=== PATIENT | female | born 1980 | race Caucasian/White ===

== ENCOUNTER 2018-12-05 21:34 | Emergency (ER) | payer BC, OTHER ==
[2018-12-05 22:19] VITALS: BP 129/78
--- NOTE | 2018-12-05 23:55 | EDM.PDOCBH ---
ED HPI GENERAL MEDICAL PROBLEM - General Chief Complaint: Behavioral/Psych Stated Complaint: ANXIETY Time Seen by Provider: 12/05/18 23:32 Source of Information: Reports: Patient, Family (Daughter), RN Notes Reviewed History Limitations: Reports: No Limitations - History of Present Illness INITIAL COMMENTS - FREE TEXT/NARRATIVE: The patient states that she has a history of anxiety and panic disorder for more than 10 years. She had previously been on Celexa, and it is not clear why that was discontinued. She had previous thoughts of killing herself, but at the time she was on Chantix. Chantix was discontinued, and those thoughts disappeared. The patient now presents with a complaint of having thoughts of killing herself , including thoughts of shooting herself, since 11/18/2018. The patient has access to a gun. She states that she was seen in the walk-in clinic on 11/18/2018 , and prescribed Lexapro 10 mg a day, which she states she has been taking as prescribed, along with hydroxyzine, which she states she has been taking about once a night. She states that her symptoms have not improved. She reports feeling chills, sweats, and vomiting over the past 2 hours. The patient states that she has never actually harmed herself in the past, and that she has never been psychiatrically hospitalized. She states that her only contact with a Psychiatrist was for about 5 minutes every 6 months, for 2 years , several years ago. The patient does not have a PCP. - Related Data Allergies Allergy/AdvReac Type Severity Reaction Status Date / Time No Known Allergies Allergy Verified 12/05/18 22:19 Home Meds: Home Meds Escitalopram [Lexapro] 10 mg PO DAILY 12/05/18 [History] Past Medical History [employer] History: Reports: Psychiatric History: Reports: Anxiety, Panic Attack - Past Surgical History HEENT Surgical History: Reports: Oral Surgery (wisdom teeth extraction), Tonsillectomy Social & Family History - Family History Family Medical History: Noncontributory - Tobacco Use Smoking Status *Q: Former Smoker Years of Tobacco use: 23 Packs/Tins Daily: 1 Month/Year Tobacco Last Used: Quit Jun 2018 - Caffeine Use Caffeine Use: Reports: None - Alcohol Use Alcohol Use History: Yes Alcohol Use Frequency: Rarely - Recreational Drug Use Recreational Drug Use: No - Living Situation & Occupation Living situation: Reports: Single, with Significant Other (Boyfriend) 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 ED EXAM, BEHAVIORAL HEALTH - Physical Exam Exam: See Below Exam Limited By: No Limitations General Appearance: Alert, WD/WN, No Apparent Distress, Anxious Eye Exam: Bilateral Eye: EOMI, Normal Inspection Ears: Normal External Exam, Hearing Grossly Normal Nose: Normal Inspection Throat/Mouth: Normal Inspection, Normal Lips, Normal Voice, No Airway Compromise Head: Atraumatic, Normocephalic Neck: Normal Inspection, Full Range of Motion Respiratory/Chest: No Respiratory Distress, Lungs Clear, Normal Breath Sounds, No Accessory Muscle Use Cardiovascular: Normal Peripheral Pulses, Regular Rate, Rhythm, No Edema, No Gallop, No JVD, No Murmur, No Rub GI/Abdominal: Normal Bowel Sounds, Soft, Non-Tender, No Organomegaly, No Distention, No Abnormal Bruit, No Mass (Female) Exam: Deferred Rectal (Female) Exam: Deferred Back Exam: Normal Inspection, Full Range of Motion, NT Extremities: Normal Inspection, Normal Range of Motion, No Pedal Edema, Normal Capillary Refill Neurological: Alert, CN II-XII Intact, No Motor/Sensory Deficits, Oriented x 3 Psychiatric: Tearful, Other (Anxious) Skin Exam: Warm, Dry, Intact, Normal color, No rash EKG INTERPRETATION EKG Date: 12/05/18 Time: 23:59 Rhythm: NSR Rate (Beats/Min): 99 [place]: Normal P-Wave: Present QRS: Normal ST-T: Depressed (Slight, anterolateral and inferior leads) QT: Normal Comparison: No Change (07/22/2015) COURSE, BEHAVIORAL HEALTH COMP - Course Vital Signs: Last Vital Signs Temp 36.8 C 12/05/18 22:14 Pulse 91 12/05/18 22:14 Resp 20 12/05/18 22:14 BP 129/78 12/05/18 22:14 Pulse Ox 99 12/05/18 22:14 Orders, Labs, Meds: Active Orders 24 hr Category Date Time Status EKG Documentation Completion [RC] STAT Care 12/05/18 23:52 Active Laboratory Tests 12/06/18 12/06/18 12/06/18 Range/Units 00:08 00:08 00:08 WBC 11.72 H (3.98-10.04) K/mm3 RBC 4.23 (3.98-5.22) M/mm3 Hgb 12.5 (11.2-15.7) gm/L Hct 38.4 (34.1-44.9) % MCV 90.8 D (79.4-94.8) fl MCH 29.6 (25.6-32.2) pg MCHC 32.6 (32.2-35.5) g/dl RDW Std Deviation 45.1 (36.4-46.3) fL Plt Count 361 (182-369) K/mm3 MPV 9.1 L (9.4-12.3) fl Neutrophils % (Manual) 82 H (40-60) % Band Neutrophils % 0 (0-10) % Lymphocytes % (Manual) 13 L (20-40) % Atypical Lymphs % 0 % Monocytes % (Manual) 5 (2-10) % Eosinophils % (Manual) 0 L (0.7-5.8) % Basophils % (Manual) 0 L (0.1-1.2) Platelet Estimate Adequate RBC Morph Comment Normal Sodium 139 (136-145) mEq/L Potassium 3.3 L (3.5-5.1) mEq/L Chloride 106 (98-107) mEq/L Carbon Dioxide 24 (21-32) mEq/L Anion Gap 12.3 (5-15) BUN 14 (7-18) mg/dL Creatinine 0.9 (0.55-1.02) mg/dL Est Cr Clr Drug Dosing 84.66 mL/min Estimated GFR (MDRD) > 60 (>60) mL/min BUN/Creatinine Ratio 15.6 (14-18) Glucose 113 H (74-106) mg/dL Calcium 8.8 (8.5-10.1) mg/dL Total Bilirubin 0.4 (0.2-1.0) mg/dL AST 12 L (15-37) U/L ALT 15 (14-59) U/L Alkaline Phosphatase 74 (46-116) U/L Total Protein 7.0 (6.4-8.2) g/dl Albumin 4.1 (3.4-5.0) g/dl Globulin 2.9 gm/dL Albumin/Globulin Ratio 1.4 (1-2) TSH 3rd Generation 2.731 (0.358-3.74) uIU/mL Urine HCG, Qual (NEGATIVE) Salicylates 0.4 L (2.8-20) mg/dL Urine Opiates Screen (JQENOO=603) Ur Buprenorphine Scrn (CUTOFF=10) Ur Oxycodone Screen (WOO5JQ=662) Urine Methadone Screen (IEKSWA=138) Ur Propoxyphene Screen (LMHRKV=732) Acetaminophen 0 L (10-30) ug/mL Ur Barbiturates Screen (IVRQNP=454) Ur Tricyclics Screen (BHLMAO=961) Ur Phencyclidine Scrn (CUTOFF=25) Ur Amphetamine Screen (FAEBDD=226) U Methamphetamines Scrn (OQBZQR=806) U Benzodiazepines Scrn (PLNWRF=143) U Cocaine Metab Screen (MQVJOL=898) U Marijuana (THC) Screen (CUTOFF=50) Ethyl Alcohol 0.00 (0.00) gm% 12/06/18 12/06/18 Range/Units 00:38 00:38 WBC (3.98-10.04) K/mm3 RBC (3.98-5.22) M/mm3 Hgb (11.2-15.7) gm/L Hct (34.1-44.9) % MCV (79.4-94.8) fl MCH (25.6-32.2) pg MCHC (32.2-35.5) g/dl RDW Std Deviation (36.4-46.3) fL Plt Count (182-369) K/mm3 MPV (9.4-12.3) fl Neutrophils % (Manual) (40-60) % Band Neutrophils % (0-10) % Lymphocytes % (Manual) (20-40) % Atypical Lymphs % % Monocytes % (Manual) (2-10) % Eosinophils % (Manual) (0.7-5.8) % Basophils % (Manual) (0.1-1.2) Platelet Estimate RBC Morph Comment Sodium (136-145) mEq/L Potassium (3.5-5.1) mEq/L Chloride (98-107) mEq/L Carbon Dioxide (21-32) mEq/L Anion Gap (5-15) BUN (7-18) mg/dL Creatinine (0.55-1.02) mg/dL Est Cr Clr Drug Dosing mL/min Estimated GFR (MDRD) (>60) mL/min BUN/Creatinine Ratio (14-18) Glucose (74-106) mg/dL Calcium (8.5-10.1) mg/dL Total Bilirubin (0.2-1.0) mg/dL AST (15-37) U/L ALT (14-59) U/L Alkaline Phosphatase (46-116) U/L Total Protein (6.4-8.2) g/dl Albumin (3.4-5.0) g/dl Globulin gm/dL Albumin/Globulin Ratio (1-2) TSH 3rd Generation (0.358-3.74) uIU/mL Urine HCG, Qual Negative (NEGATIVE) Salicylates (2.8-20) mg/dL Urine Opiates Screen Negative (VAPEPY=847) Ur Buprenorphine Scrn Negative (CUTOFF=10) Ur Oxycodone Screen Negative (ZWC4CU=110) Urine Methadone Screen Negative (OMBOGR=642) Ur Propoxyphene Screen Negative (VHHOOI=653) Acetaminophen (10-30) ug/mL Ur Barbiturates Screen Negative (KTIJAB=020) Ur Tricyclics Screen Negative (SXKPBK=068) Ur Phencyclidine Scrn Negative (CUTOFF=25) Ur Amphetamine Screen Negative (RCXREY=999) U Methamphetamines Scrn Negative (BSGWRH=853) U Benzodiazepines Scrn Negative (LQSXRL=237) U Cocaine Metab Screen Negative (PJXEKR=977) U Marijuana (THC) Screen Negative (CUTOFF=50) Ethyl Alcohol (0.00) gm% Medications Discontinued Medications Generic Name Dose Route Start Last Admin Trade Name Freq PRN Reason Stop Dose Admin Lorazepam 1 mg 12/06/18 01:05 12/06/18 01:13 Ativan PO 12/06/18 01:06 1 mg ONETIME ONE Administration Medical Clearance: 12/05/18 23:54 The patient is clearly quite anxious. She is tearful, states that she has had chills, sweats, and vomiting over the past 2 hours. More concerning, however, are her thoughts of harming herself, including shooting herself, and she has access to a gun. I believe the patient would be well served to be psychiatrically admitted, and the patient is agreeable. I have therefore ordered a medical clearance panel for psychiatric admission, and after the urine sample is collected, she will receive a single dose of Ativan 1 mg to help calm her down. 12/06/18 01:13 The patient was given 1 mg of oral Ativan. Her medical clearance panel is completely normal. We will endeavor to find a psychiatric bed. 12/06/18 01:29 Case discussed with Mauri at [facility] at 01:15. Case then discussed with Dr. Woods, Psychiatrist at [facility], at 01: 24. He accepted the patient to be admitted to their psychiatric facility, however, because the patient will be voluntary, she will need to come through the ED. Dr. Jacob, ED physician at [facility], accepted the patient for transfer to their ED at 01:28. Departure - Departure Time of Disposition: 01:30 Disposition: DC/Tfer to Psych Hosp/Unit 65 Condition: Good Clinical Impression: Suicidal ideation - Discharge Information Referrals: PCP,None [Primary Care Provider] - Forms: ED Department Discharge - My Orders Last 24 Hours: My Active Orders 12/05/18 23:52 EKG Documentation Completion [RC] STAT - Assessment/Plan Last 24 Hours: My Active Orders 12/05/18 23:52 EKG Documentation Completion [RC] STAT
[2018-12-06 00:54] LABS: ACETAMINOPHEN 0 ug/mL (10-30)
[2018-12-06] MEDS ORDERED: LORazepam 1 MG Tab PO ONE (01:05)
== END 2018-12-06 03:44 ==
LOC: JD.ED 21:34
DX: R45.851 Suicidal ideations (principal); R11.10 Vomiting, unspecified; F41.9 Anxiety disorder, unspecified; Z79.899 Other long term (current) drug therapy; Z98.890 Other specified postprocedural states; Z87.891 Personal history of nicotine dependence
CPT/HCPCS: 36415; 80053; 80306; 81025; 84443; 85007; 85027; 93005; 99285; A9270; G0480; 93010; 99283